=== PATIENT | male | born 1960 | race Two or more races ===

== ENCOUNTER 2018-03-27 14:20 | Observation (INO) | payer OTHER ==
--- NOTE | 2018-03-27 14:24 | EDM.PDOC ---
ED HPI GENERAL MEDICAL PROBLEM - General Chief Complaint: Laceration Stated Complaint: LACERATION TO RIGHT LEG Time Seen by Provider: 03/27/18 14:24 Source of Information: Reports: Patient History Limitations: Reports: No Limitations - History of Present Illness INITIAL COMMENTS - FREE TEXT/NARRATIVE: HISTORY AND PHYSICAL: History of present illness: 57-year-old male presenting in the department with chief complaint of laceration to his right lower leg. 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 He was making the stakes pointed at one end so they would be easier to insert into the ground for support. After cutting one of the angled stakes he inadvertently left it near the chopsaw he was using and then while grabbing another 4 x 4 jabbed the pointed stake into his right lower extremity causing a significant laceration. Patient felt an immediate pain but denies any loss of sensation, strength, or overall function. States that it did not bleed very much. He does not know when his last tetanus shot was. He denies any other injuries. He has no significant medical history and takes no medications. He has no known allergies. Review of systems: As per history of present illness and below otherwise all systems reviewed and negative. Past medical history: As per history of present illness and as reviewed below otherwise noncontributory. Surgical history: As per history of present illness and as reviewed below otherwise noncontributory. Social history: No reported history of drug or alcohol abuse. Family history: As per history of present illness and as reviewed below otherwise noncontributory. Physical exam: HEENT: Atraumatic, normocephalic, pupils reactive, negative for conjunctival pallor or scleral icterus, mucous membranes moist, throat clear, neck supple, nontender, trachea midline. Lungs: Clear to auscultation, breath sounds equal bilaterally, chest nontender. Heart: S1S2, regular, negative for clicks, rubs, or JVD. Abdomen: Soft, nondistended, nontender. Negative for masses or hepatosplenomegaly. Negative for costovertebral tenderness. Pelvis: Stable nontender. Genitourinary: Deferred. Rectal: Deferred. Extremities: There is a 10 cm laceration to the right leg just lateral and superior to the right knee. Laceration is approximately 1 cm in width, negative for cords or calf pain. Neurovascular unremarkable. Neuro: Awake, alert, oriented. Cranial nerves II through XII unremarkable. Cerebellum unremarkable. Motor and sensory unremarkable throughout. Exam nonfocal. Diagnostics: [] Therapeutics: [1% lidocaine with epi 10 mL, Tdaptr Impression: [Laceration 10 cm x 1 cm right lower leg, Plan: 10 mL of 1% lidocaine with epi was injected into laceration with good analgesia. Wound was cleaned thoroughly. Under normal sterile techniques laceration was closed with a 11 vertical mattress sutures with 4-0 Prolene. The end of the wound was forked and closed separately. Patient tolerated procedure well. There were no comp occasions. Area was cleaned and bacitracin was applied with sterile dressings. Patient was instructed to return in 7-10 days for suture removal. Patient was instructed to keep area dry and clean. Use ibuprofen and Tylenol for pain relief. He should watch for any signs of in infection including but not limited to increased redness, purulent drainage, increased pain, or fevers. Left Leg Pain Score (Numeric/FACES): 2 - Related Data Allergies Allergy/AdvReac Type Severity Reaction Status Date / Time No Known Allergies Allergy Verified 03/27/18 15:01 Home Meds: Home Meds . [No Known Home Meds] 03/27/18 [History] ED ROS GENERAL - Review of Systems Review Of Systems: See Below ED EXAM, SKIN/RASH Exam: See Below Course - Vital Signs Last Recorded V/S: Last Vital Signs Temp 97.3 F 03/27/18 14:35 Pulse 116 H 03/27/18 14:35 Resp 18 03/27/18 14:35 BP 169/98 H 03/27/18 14:35 Pulse Ox 97 03/27/18 14:35 - Orders/Labs/Meds Orders: Active Orders 24 hr Category Date Time Status Vaccines to be Administered [RC] PER UNIT ROUTINE Care 03/27/18 14:42 Active Meds: Medications Discontinued Medications Generic Name Dose Route Start Last Admin Trade Name Freq PRN Reason Stop Dose Admin Diphtheria/Tetanus/Acell Pertussis 0.5 ml 03/27/18 14:42 03/27/18 15:16 Adacel IM 03/27/18 14:43 0.5 ml .ONCE ONE Administration Lidocaine/Epinephrine 20 ml 03/27/18 14:42 03/27/18 15:17 Xylocaine 1% With Epinephrine 1:100,000 INJECT 03/27/18 14:43 6 ml ONETIME ONE Administration Departure - Departure Time of Disposition: 16:07 Disposition: Home, Self-Care 01 Condition: Good Clinical Impression: Laceration - Discharge Information Referrals: PCP,None [Primary Care Provider] - Forms: ED Department Discharge Additional Instructions: My general discharge The following information is given to patients seen in the emergency department who are being discharged to home. This information is to outline your options for follow-up care. We provide all patients seen in our emergency department with a follow-up referral. The need for follow-up, as well as the timing and circumstances, are variable depending upon the specifics of your emergency department visit. If you don't have a primary care physician on staff, we will provide you with a referral. We always advise you to contact your personal physician following an emergency department visit to inform them of the circumstance of the visit and for follow-up with them and/or the need for any referrals to a consulting specialist. The emergency department will also refer you to a specialist when appropriate. This referral assures that you have the opportunity for follow-up care with a specialist. All of these measure are taken in an effort to provide you with optimal care, which includes your follow-up. Under all circumstances we always encourage you to contact your private physician who remains a resource for coordinating your care. When calling for follow-up care, please make the office aware that this follow-up is from your recent emergency room visit. If for any reason you are refused follow-up, please contact the [facility] Emergency Department at and asked to speak to the emergency department charge nurse. [facility] [address] [place] [address] - My Orders Last 24 Hours: My Active Orders 03/27/18 14:42 Vaccines to be Administered [RC] PER UNIT ROUTINE - Assessment/Plan Last 24 Hours: My Active Orders 03/27/18 14:42 Vaccines to be Administered [RC] PER UNIT ROUTINE
[2018-03-27] MEDS ORDERED: Diphtheria,Pertussis(Acell),Tetanus Vaccine 0.5 ML Syringe IM ONE (14:42)
[2018-03-27] MEDS ORDERED: Lidocaine 1% with EPINEPHrine 1:100,000 20 ML MDV INJECT ONE (14:42)
[2018-03-27] MEDS ORDERED: Bacitracin Oint 1 GM U/D Packet TOP ONE (16:20)
[2018-03-27] MEDS ORDERED: Diltiazem 25 MG/5 ML SDV IVPUSH ONE (17:57)
[2018-03-27] MEDS ORDERED: Sodium Chloride 0.9% 10 ML Syringe FLUSH PRN (21:46)
[2018-03-27] MEDS ORDERED: Morphine 10 MG/ML Syringe IVPUSH PRN (21:46)
[2018-03-27] MEDS ORDERED: Ondansetron 4 MG/2 ML SDV IVPUSH PRN (21:46)
[2018-03-27] MEDS ORDERED: Sodium Chloride 0.9% 2.5 ML Syringe FLUSH PRN (21:46)
[2018-03-27] MEDS ORDERED: Albuterol/Ipratropium 3.0-0.5 MG/3 ML Neb Soln NEB PRN (21:46)
[2018-03-27] MEDS ORDERED: Acetaminophen 325 MG Tab PO PRN (21:46)
--- NOTE | 2018-03-27 21:46 | PCM.HP ---
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 He states he did not have a lot of blood loss and in ER after he received lidocaine with epinephrine he was found to have heart rate going in 140-150 , with junctional tachycardias on the EKG. Er recommended patient to be admitted to observation. Patient denies any SOB, chest pain , palpitations and he is unaware of any heart problems. Onset of Symptoms: Reports: Today Duration of Symptoms: Reports: Hour(s): Quality: Reports: Ache Left Leg Pain Score (Numeric/FACES): 0 - Related Data Allergies/Adverse Reactions: Allergies Allergy/AdvReac Type Severity Reaction Status Date / Time No Known Allergies Allergy Verified 03/27/18 15:01 Home Medications: Home Meds Diltiazem HCl [Diltiazem 24Hr ER] 360 mg PO DAILY #30 cap.er.24h 03/28/18 [Rx] Past Medical History - Past Health History Medical/Surgical History: Denies Medical/Surgical History Social & Family History - Family History Family Medical History: Noncontributory - Tobacco Use Smoking Status *Q: Current Some Day Smoker Years of Tobacco use: 30 Packs/Tins Daily: 1 Tobacco Use Comment: smokes 3-4 cigarettes daily. Smoked over 30 years on and off. Second Hand Smoke Exposure: Yes - Caffeine Use Caffeine Use: Reports: Energy Drinks - Alcohol Use Days Per Week of Alcohol Use: 7 Number of Drinks Per Day: 10 Total Drinks Per Week: 70 Date of Last Drink: 03/26/18 Time of Last Drink: 22:00 - Recreational Drug Use Recreational Drug Use: No H&P Review of Systems - Review of Systems: Review Of Systems: See Below General: Reports: No Symptoms HEENT: Reports: No Symptoms Pulmonary: Reports: No Symptoms Cardiovascular: Reports: No Symptoms Gastrointestinal: Reports: No Symptoms Genitourinary: Reports: No Symptoms Musculoskeletal: Reports: Leg Pain Skin: Reports: No Symptoms Psychiatric: Reports: No Symptoms Neurological: Reports: No Symptoms Exam - Exam Exam: See Below - Vital Signs Vital Signs: Last Vital Signs Temp 97.9 F 03/27/18 19:40 Pulse 109 H 03/27/18 20:30 Resp 14 03/27/18 20:30 BP 146/81 H 03/27/18 20:30 Pulse Ox 97 03/27/18 20:30 Weight: 183 lb 13.848 oz - Exam General: Alert, Oriented HEENT: Conjunctiva Clear, EACs Clear, EOMI, Hearing Intact Neck: Supple, Trachea Midline Lungs: Clear to Auscultation, Normal Respiratory Effort Cardiovascular: Regular Rate, Regular Rhythm, Normal S1, Normal S2. No: Systolic Murmur, Diastolic Murmur GI/Abdominal Exam: Normal Bowel Sounds, Soft, Non-Tender, No Organomegaly, No Distention, No Abnormal Bruit Back Exam: Normal Inspection Extremities: Other (rt leg laceration) Skin: Warm, Incision Neurological: Cranial Nerves Intact Neuro Extensive - Mental Status: Alert, Oriented x3, Normal Mood/Affect Neuro Extensive - Motor, Sensory, Reflexes: CN II-XII Intact Psychiatric: Alert, Normal Affect, Normal Mood - Patient Data Result Diagrams: 03/28/18 06:02 03/28/18 06:02 EKG INTERPRETATION EKG Date: 03/27/18 Rhythm: Other (junctional tachycardia) - Problem List (1) Paroxysmal junctional tachycardia SNOMED Code(s): 512784433 ICD Code: I47.1 - SUPRAVENTRICULAR TACHYCARDIA Status: Acute Current Visit: Yes (2) Laceration SNOMED Code(s): 915876725 ICD Code: [id number] - Status: Acute Current Visit: Yes Problem List Initiated/Reviewed/Updated: Yes Orders Last 24hrs: Active Orders 24 hr Category Date Time Status Admission Status [Patient Status] [ADT] Stat ADT 03/27/18 19:03 Active Cardiac Monitoring [RC] . DIRECTED Care 03/27/18 19:03 Active EKG Documentation Completion [RC] STAT Care 03/27/18 16:34 Active Vaccines to be Administered [RC] PER UNIT ROUTINE Care 03/27/18 14:42 Active Assessment and plan 1) Junctional tachycardia paroxysmal- will admit patient to telemetry for observation. Will trend troponins , will order tsh, urine toxycology,will give cardiazem if persistent tachycardia 2)Leg laceration- will give patient cefazolin 1 gram iv q 8 h , pain medication 3)Dvt prof- none 4)Gi prof- protonix po
[2018-03-27] MEDS ORDERED: Acetaminophen 500 MG Tab PO PRN (22:38)
[2018-03-27] MEDS: ceFAZolin 1 GM in Premix Bag 1 BAG IV SCH (22:40)
[2018-03-28] MEDS: ceFAZolin 1 GM in Premix Bag 1 BAG IV SCH ×3 (05:46→14:41)
[2018-03-28 07:11] LABS: CHLORIDE,CL 102 mmol/L (98-107); SODIUM,NA 137 mmol/L (136-148)
[2018-03-28] MEDS ORDERED: Diltiazem 180 MG Cap.CD PO SCH (13:45)
[2018-03-28] MEDS ORDERED: Verapamil 180 MG Tab.ER PO SCH (13:45)
[2018-03-28] MEDS ORDERED: Diltiazem 180 MG Cap.CD PO ONE (16:30)
--- NOTE | 2018-03-28 20:16 | PCM.DCSUM1 ---
Discharge Summary - Discharge Data Discharge Disposition: Home, Self-Care 01 Condition: Fair - Discharge Diagnosis/Problem(s) (1) Paroxysmal junctional tachycardia SNOMED Code(s): 794614575 ICD Code: I47.1 - SUPRAVENTRICULAR TACHYCARDIA Status: Acute Current Visit: Yes (2) Laceration SNOMED Code(s): 648927765 ICD Code: [id number] - Status: Acute Current Visit: Yes - Patient Instructions Diet: Usual Diet as Tolerated Activity: As Tolerated Driving: May Drive Today Showering/Bathing: May Shower Notify Provider of: Fever, Increased Pain - Discharge Plan Prescriptions/Med Rec: Acetaminophen/oxyCODONE [Percocet 325-5 MG] 1 each PO Q6H PRN 5 Days #30 tab PRN Reason: moderate to severe pain Amoxicillin/Clavulanate K [Augmentin 875-125 MG] 1 tab PO BID 10 Days #20 tablet Diltiazem HCl [Diltiazem 24Hr ER] 360 mg PO DAILY #30 cap.er.24h Home Medications: Home Meds Acetaminophen/oxyCODONE [Percocet 325-5 MG] 1 each PO Q6H PRN 5 Days #30 tab [Rx] Amoxicillin/Clavulanate K [Augmentin 875-125 MG] 1 tab PO BID 10 Days #20 tablet 03/28/18 [Rx] Diltiazem HCl [Diltiazem 24Hr ER] 360 mg PO DAILY #30 cap.er.24h 03/28/18 [Rx] Patient Handouts: Laceration Care, Adult, [id number] Forms: ED Department Discharge Referrals: Kylie Omalley MD [Physician] - (Call on Friday for follow up appointment in one week. ) PCP,None [Primary Care Provider] - - Patient Data Vitals - Most Recent: Last Vital Signs Temp 98.0 F 03/28/18 15:53 Pulse 98 03/28/18 17:57 Resp 16 03/28/18 17:57 BP 111/78 03/28/18 17:57 Pulse Ox 97 03/28/18 17:57 Weight - Most Recent: 183 lb 13.848 oz I&O - Last 24 hours: Intake & Output 03/28/18 03/28/18 03/28/18 06:59 14:59 22:59 Intake Total 740 Output Total 600 Balance 140 Lab Results - Last 24 hrs: Laboratory Results - last 24 hr 03/27/18 03/28/18 03/28/18 Range/Units 22:01 06:00 06:02 WBC 7.05 (4.0-11.0) K/uL RBC 4.28 L (4.50-5.90) M/uL Hgb 13.4 (13.0-17.0) g/dL Hct 39.9 (38.0-50.0) % MCV 93.2 (80.0-98.0) fL MCH 31.3 (27.0-32.0) pg MCHC 33.6 (31.0-37.0) g/dL RDW Std Deviation 46.9 (28.0-62.0) fl RDW Coeff of Fab 14 (11.0-15.0) % Plt Count 419 H (150-400) K/uL MPV 9.00 (7.40-12.00) fL Neut % (Auto) 65.8 (48.0-80.0) % Lymph % (Auto) 15.3 L (16.0-40.0) % Dyer % (Auto) 14.9 (0.0-15.0) % Eos % (Auto) 3.7 (0.0-7.0) % Baso % (Auto) 0.3 (0.0-1.5) % Neut # (Auto) 4.6 (1.4-5.7) K/uL Lymph # (Auto) 1.1 (0.6-2.4) K/uL Dyer # (Auto) 1.1 H (0.0-0.8) K/uL Eos # (Auto) 0.3 (0.0-0.7) K/uL Baso # (Auto) 0.0 (0.0-0.1) K/uL Nucleated RBC % 0.0 /100WBC Nucleated RBCs # 0 K/uL Sodium (136-148) mmol/L Potassium (3.5-5.1) mmol/L Chloride (98-107) mmol/L Carbon Dioxide (21.0-32.0) mmol/L BUN (7.0-18.0) mg/dL Creatinine (0.8-1.3) mg/dL Est Cr Clr Drug Dosing mL/min Estimated GFR (MDRD) ml/min Glucose (74-106) mg/dL POC Glucose (60-110) mg/dL Calcium (8.5-10.1) mg/dL Magnesium 2.0 (1.5-2.0) mg/dL Troponin I < 0.050 (0.000-0.056) ng/mL TSH 3rd Generation (0.36-3.74) uIU/mL 03/28/18 03/28/18 03/28/18 Range/Units 06:02 11:56 18:56 WBC (4.0-11.0) K/uL RBC (4.50-5.90) M/uL Hgb (13.0-17.0) g/dL Hct (38.0-50.0) % MCV (80.0-98.0) fL MCH (27.0-32.0) pg MCHC (31.0-37.0) g/dL RDW Std Deviation (28.0-62.0) fl RDW Coeff of Fab (11.0-15.0) % Plt Count (150-400) K/uL MPV (7.40-12.00) fL Neut % (Auto) (48.0-80.0) % Lymph % (Auto) (16.0-40.0) % Dyer % (Auto) (0.0-15.0) % Eos % (Auto) (0.0-7.0) % Baso % (Auto) (0.0-1.5) % Neut # (Auto) (1.4-5.7) K/uL Lymph # (Auto) (0.6-2.4) K/uL Dyer # (Auto) (0.0-0.8) K/uL Eos # (Auto) (0.0-0.7) K/uL Baso # (Auto) (0.0-0.1) K/uL Nucleated RBC % /100WBC Nucleated RBCs # K/uL Sodium 137 (136-148) mmol/L Potassium 3.7 (3.5-5.1) mmol/L Chloride 102 (98-107) mmol/L Carbon Dioxide 29.4 (21.0-32.0) mmol/L BUN 7 (7.0-18.0) mg/dL Creatinine 0.9 (0.8-1.3) mg/dL Est Cr Clr Drug Dosing 103.57 mL/min Estimated GFR (MDRD) > 60.0 ml/min Glucose 97 (74-106) mg/dL POC Glucose 73 (60-110) mg/dL Calcium 8.9 (8.5-10.1) mg/dL Magnesium (1.5-2.0) mg/dL Troponin I (0.000-0.056) ng/mL TSH 3rd Generation 1.85 (0.36-3.74) uIU/mL Med Orders - Current: Current Medications Acetaminophen (Tylenol Extra Strength) 500 mg PO Q6H PRN PRN Reason: T more than 100.4F Albuterol/Ipratropium (Duoneb 3.0-0.5 Mg/3 Ml) 3 ml NEB Q4HRRT PRN PRN Reason: Shortness Of Breath/wheezing Diltiazem HCl (Cardizem Cd) 180 mg PO DAILY [facility] Last Admin: 03/28/18 14:35 Dose: 180 mg Cefazolin Sodium/Dextrose 1 gm (/ Premix) 50 mls @ 100 mls/hr IV Q8H [facility] Last Admin: 03/28/18 14:41 Dose: 100 mls/hr Morphine Sulfate (Morphine) 2 mg IVPUSH Q2H PRN PRN Reason: Pain (severe 7-10) Stop: 03/28/18 21:47 Ondansetron HCl (Zofran) 4 mg IVPUSH Q4H PRN PRN Reason: Nausea Sodium Chloride (Saline Flush) 10 ml FLUSH ASDIRECTED PRN PRN Reason: Keep Vein Open Sodium Chloride (Saline Flush) 2.5 ml FLUSH ASDIRECTED PRN PRN Reason: Keep Vein Open Discontinued Medications Acetaminophen (Tylenol) 650 mg PO Q4H PRN PRN Reason: Pain (Mild 1-3)/fever Bacitracin (Bacitracin Oint 1 Gm) 1 dose TOP ONETIME ONE Stop: 03/27/18 16:21 Last Admin: 03/27/18 16:26 Dose: 1 dose Diltiazem HCl (Diltiazem) 20 mg IVPUSH ONETIME ONE Stop: 03/27/18 17:58 Last Admin: 03/27/18 18:34 Dose: 20 mg Diltiazem HCl (Cardizem Cd) 180 mg PO ONETIME ONE Stop: 03/28/18 16:31 Last Admin: 03/28/18 16:30 Dose: 180 mg Diphtheria/Tetanus/Acell Pertussis (Adacel) 0.5 ml IM .ONCE ONE Stop: 03/27/18 14:43 Last Admin: 03/27/18 15:16 Dose: 0.5 ml Lidocaine/Epinephrine (Xylocaine 1% With Epinephrine 1:100,000) 20 ml INJECT ONETIME ONE Stop: 03/27/18 14:43 Last Admin: 03/27/18 15:17 Dose: 6 ml Verapamil HCl (Calan Sr) 180 mg PO BID [facility]
== END 2018-03-28 20:00 | disposition home or self-care (01) ==
LOC: MW.ED 14:20 → MW.MS 19:03
PROVIDERS: ADMIT Internal Medicine; ATTEND Internal Medicine
DX: S81.811A Laceration without foreign body, right lower leg, initial encounter (principal); I47.1 Supraventricular tachycardia; F17.210 Nicotine dependence, cigarettes, uncomplicated; W31.9XXA Contact with unspecified machinery, initial encounter; Z79.899 Other long term (current) drug therapy
CPT/HCPCS: 36415; 80048; 80305; 82962; 83735; 84443; 84484; 85025; 90471; 90715; 93005; 96374; 99284; A9270; J0690; J3490; 96375; 96376; G0378

== ENCOUNTER 2018-04-06 10:29 | Emergency (ER) | payer OTHER | END 2018-04-06 11:12 | disposition left against medical advice (07) | LOC: MW.ED 10:29 | DX: Z53.21 Procedure and treatment not carried out due to patient leaving prior to being seen by health care provider (principal) ==